=== PATIENT | male | born 1965 | race Caucasian/White ===

== ENCOUNTER 2017-02-19 18:51 | Emergency (ER) | payer SELFPAY ==
[~2017-02-19] VITALS: Ht 182.8 cm; Wt 81.6 kg
[2017-02-19 19:07] VITALS: BP 137/96
== END 2017-02-19 20:10 | disposition home or self-care (01) ==
LOC: ED 18:51
DX: S62.346A Nondisplaced fracture of base of fifth metacarpal bone, right hand, initial encounter for closed fracture (principal); Z91.040 Latex allergy status; W22.01XA Walked into wall, initial encounter; Y93.89 Activity, other specified; Y92.89 Other specified places as the place of occurrence of the external cause; Y99.8 Other external cause status

== ENCOUNTER 2022-07-11 16:25 | Emergency (ER) | payer SELFPAY ==
[~2022-07-11] VITALS: Wt 86.2 kg
[2022-07-11 16:57] VITALS: BP 128/80
== END 2022-07-11 18:35 | disposition home or self-care (01) ==
LOC: ED 16:25
DX: M10.9 Gout, unspecified (principal); R60.0 Localized edema; Z98.890 Other specified postprocedural states